=== PATIENT | male | born 1995 | race Caucasian/White ===

== ENCOUNTER 2016-12-20 19:07 | Inpatient (IN) | payer MEDICAID ==
[~2016-12-20] VITALS: Ht 180.3 cm; Wt 64.0 kg
[2016-12-20 21:02] VITALS: BP 123/85
[2016-12-20] MEDS ORDERED: ZOLPIDEM TARTRATE 10 MG TABLET PO PRN (21:15)
[2016-12-20] MEDS ORDERED: HALOPERIDOL 5 MG TABLET PO PRN (21:15)
[2016-12-20] MEDS ORDERED: DiphenhydrAMINE/ZINC ACET 30 GM CREAM TP PRN (22:00)
[2016-12-20 22:01] VITALS: BP 127/85
[2016-12-20] MEDS ORDERED: INFLUENZA VIRUS VACCINE QVS 2016-17 (3YR+)/PF 60 MCG/0.5 ML SYRINGE IM ONE (22:15)
[2016-12-21 10:22] VITALS: BP 112/78
[2016-12-21 17:59] VITALS: BP 117/62
[2016-12-22 08:49] VITALS: BP 135/93
[2016-12-22 16:29] VITALS: BP 120/65
[2016-12-23 08:00] VITALS: BP 125/76
[2016-12-23] MEDS: LORazepam 2 MG TABLET PO PRN ×2 (10:10→16:47)
[2016-12-23] MEDS: RisperiDONE 1 MG TABLET PO SCH (16:47)
[2016-12-23 21:10] VITALS: BP 118/85
[2016-12-24 07:40] LABS: BASOPHILS % (AUTO) 0.4 % (0.0-2.0); HEMATOCRIT 48.8 % (41-53); HEMOGLOBIN 16.3 g/dL (13.5-17.5); LYMPHOCYTES # (AUTO) 2.2 K/uL (1.0-4.8); LYMPHOCYTES % (AUTO) 36.7 % (22.0-44.0); MEAN CORPUSCULAR HEMOGLOBIN 29.3 pg (26.0-34.0); MEAN CORPUSCULAR HGB CONC 33.4 G/dL (31.0-37.0); MEAN CORPUSCULAR VOLUME 88 fL (80-100); MONOCYTES # (AUTO) 0.6 K/uL (0.1-1.0); MONOCYTES % (AUTO) 9.8 % (2.0-9.0); NEUTROPHILS # (AUTO) 2.9 K/uL (1.8-7.7); NEUTROPHILS % (AUTO) 49.1 % (40.0-70.0); PLATELET COUNT (AUTO) 184 K/uL (150-450); RED BLOOD CELL COUNT(AUTO) 5.55 MIL/uL (4.50-5.90)
[2016-12-24 08:21] LABS: ALANINE AMINOTRANSFERASE 20 U/L (12-78); ALBUMIN 4.1 g/dL (3.4-5.0); ANION GAP 7 mmol/L (8-16); ASPARTATE AMINOTRANSFERASE 15 U/L (15-37); BILIRUBIN,TOTAL 0.6 mg/dL (0.1-1.0); CALCIUM, TOTAL 9.1 mg/dL (8.8-10.5); CARBON DIOXIDE 29 mmol/L (22-29); CHLORIDE 103 mmol/L (98-107); CREATININE 1.02 mg/dL (0.60-1.30); GLOMERULAR FILTR. RATE CALC > 60 mL/min (>60); POTASSIUM 4.5 mmol/L (3.5-5.1); SODIUM SERUM 139 mmol/L (136-145); TOTAL PROTEIN, SERUM 7.3 g/dL (6.4-8.2); UREA NITROGEN, BLOOD 17 mg/dL (7-18)
[2016-12-24 08:39] VITALS: BP 132/76
[2016-12-24] MEDS: RisperiDONE 1 MG TABLET PO SCH ×2 (10:55→17:06)
[2016-12-24 16:30] VITALS: BP 132/80
[2016-12-24] MEDS: LORazepam 2 MG TABLET PO PRN (17:05)
[2016-12-25 06:34] VITALS: BP 128/78
[2016-12-25] MEDS: RisperiDONE 1 MG TABLET PO SCH ×2 (09:09→16:21)
[2016-12-25 10:02] VITALS: BP 131/75
[2016-12-25 16:38] VITALS: BP 132/96
[2016-12-25] MEDS: DOCUSATE SODIUM 100 MG CAPSULE PO PRN (19:03)
[2016-12-26 08:00] VITALS: BP 125/70
[2016-12-26] MEDS: RisperiDONE 1 MG TABLET PO SCH ×2 (09:04→16:05)
[2016-12-26] MEDS: DOCUSATE SODIUM 100 MG CAPSULE PO PRN (10:56)
[2016-12-26 16:42] VITALS: BP 132/72
[2016-12-26] MEDS ORDERED: RISP1 PO (18:14)
== END 2016-12-26 19:45 | disposition home or self-care (01) | DRG 750 ==
LOC: 3EI 20:00
PROVIDERS: ADMIT Psychiatry & Neurology Psychiatry; ATTEND Psychiatry & Neurology Psychiatry
DX: F25.9 Schizoaffective disorder, unspecified (principal); R45.851 Suicidal ideations; Z59.0 Homelessness; F31.9 Bipolar disorder, unspecified; Z28.21 Immunization not carried out because of patient refusal; F19.10 Other psychoactive substance abuse, uncomplicated; F99 Mental disorder, not otherwise specified

== ENCOUNTER 2017-02-20 13:11 | Inpatient (IN) | payer MEDICAID ==
[~2017-02-20] VITALS: Ht 177.8 cm; Wt 78.6 kg
[~2017-02-20 13:11] MED LIST: RISP1 PO
[2017-02-20] MEDS ORDERED: DIPH25CA85 PO (14:48)
[2017-02-20] MEDS ORDERED: OLAN5TAB2 PO (14:48)
[2017-02-20] MEDS ORDERED: FLUO40CA7 PO (14:49)
[2017-02-20 16:13] LABS: BASOPHILS % (AUTO) 0.6 % (0.0-2.0); EOSINOPHILS % (AUTO) 3.9 % (1.0-6.0); HEMATOCRIT 44.6 % (41-53); HEMOGLOBIN 14.9 g/dL (13.5-17.5); LYMPHOCYTES % (AUTO) 31.1 % (22.0-44.0); MEAN CORPUSCULAR HEMOGLOBIN 29.3 pg (26.0-34.0); MEAN CORPUSCULAR HGB CONC 33.4 G/dL (31.0-37.0); MEAN CORPUSCULAR VOLUME 88 fL (80-100); MONOCYTES # (AUTO) 0.6 K/uL (0.1-1.0); MONOCYTES % (AUTO) 9.9 % (2.0-9.0); NEUTROPHILS # (AUTO) 3.4 K/uL (1.8-7.7); NEUTROPHILS % (AUTO) 54.5 % (40.0-70.0); PLATELET COUNT (AUTO) 187 K/uL (150-450); RED BLOOD CELL COUNT(AUTO) 5.09 MIL/uL (4.50-5.90); RED CELL DISTRIBUTION WIDTH 13.1 % (11.5-14.5); WHITE BLOOD COUNT (AUTO) 6.3 K/uL (4.5-11.0)
[2017-02-20 16:21] LABS: ANION GAP 7 mmol/L (8-16); CALCIUM, TOTAL 8.8 mg/dL (8.8-10.5); CARBON DIOXIDE 30 mmol/L (22-29); CHLORIDE 106 mmol/L (98-107); GLOMERULAR FILTR. RATE CALC > 60 mL/min (>60); POTASSIUM 4.4 mmol/L (3.5-5.1); SODIUM SERUM 143 mmol/L (136-145); UREA NITROGEN, BLOOD 11 mg/dL (7-18)
[2017-02-20 16:27] LABS: ALBUMIN 3.8 g/dL (3.4-5.0); BILIRUBIN,TOTAL 0.4 mg/dL (0.1-1.0); TOTAL PROTEIN, SERUM 6.9 g/dL (6.4-8.2)
[2017-02-20 17:31] LABS: ALANINE AMINOTRANSFERASE 24 U/L (12-78); ASPARTATE AMINOTRANSFERASE 18 U/L (15-37)
[2017-02-20] MEDS ORDERED: LORazepam 1 MG TABLET PO PRN (17:45)
[2017-02-20] MEDS ORDERED: LORazepam 2 MG TABLET PO PRN (17:45)
[2017-02-20] MEDS ORDERED: HALOPERIDOL 5 MG TABLET PO PRN (17:45)
[2017-02-21 06:05] VITALS: BP 118/62
[2017-02-21 08:46] VITALS: BP 106/60
[2017-02-21] MEDS: NICOTINE 7 MG/24 HOUR PATCH TD SCH (08:47)
[2017-02-21 09:21] LABS: HEMOGLOBIN A1C 5.1 % (4.5-6.2)
[2017-02-21 10:16] LABS: CHOL/HDL RATIO 4.1 (4.2-7.3); THYROID STIMULATING HORMONE 0.85 uIU/mL (0.36-3.74)
[2017-02-21] MEDS: FLUoxetine HCL 20 MG CAPSULE PO SCH (11:53)
[2017-02-21 16:00] VITALS: BP 127/76
[2017-02-21] MEDS: DIVALPROEX SODIUM 500 MG DR TABLET PO SCH (16:21)
[2017-02-21] MEDS ORDERED: IBUPROFEN 400 MG TABLET PO PRN (20:45)
[2017-02-21] MEDS ORDERED: ACETAMINOPHEN 325 MG TABLET PO PRN (20:45)
[2017-02-22 06:00] VITALS: BP 105/66
[2017-02-22 09:16] VITALS: BP 125/65
[2017-02-22] MEDS: DIVALPROEX SODIUM 500 MG DR TABLET PO SCH ×2 (09:29→16:49)
[2017-02-22] MEDS: FLUoxetine HCL 20 MG CAPSULE PO SCH (09:29)
[2017-02-22] MEDS: NICOTINE 7 MG/24 HOUR PATCH TD SCH (09:30)
[2017-02-22 16:00] VITALS: BP 120/72
[2017-02-23 00:18] VITALS: BP 108/67
[2017-02-23 08:27] VITALS: BP 128/70
[2017-02-23] MEDS: FLUoxetine HCL 20 MG CAPSULE PO SCH (09:08)
[2017-02-23] MEDS: DIVALPROEX SODIUM 500 MG DR TABLET PO SCH ×2 (09:08→17:05)
[2017-02-23] MEDS: NICOTINE 7 MG/24 HOUR PATCH TD SCH (09:09)
[2017-02-23 16:15] VITALS: BP 140/72
[2017-02-24 00:56] VITALS: BP 118/65
[2017-02-24] MEDS: DIVALPROEX SODIUM 500 MG DR TABLET PO SCH ×2 (08:09→16:58)
[2017-02-24] MEDS: FLUoxetine HCL 20 MG CAPSULE PO SCH (08:09)
[2017-02-24] MEDS: NICOTINE 7 MG/24 HOUR PATCH TD SCH (08:10)
[2017-02-24 08:46] VITALS: BP 140/79
[2017-02-24 16:09] VITALS: BP 126/73
[2017-02-25 02:14] VITALS: BP 105/65
[2017-02-25 08:25] VITALS: BP 134/84
[2017-02-25] MEDS: FLUoxetine HCL 20 MG CAPSULE PO SCH (09:29)
[2017-02-25] MEDS: DIVALPROEX SODIUM 500 MG DR TABLET PO SCH ×2 (09:29→17:26)
[2017-02-25] MEDS: NICOTINE 7 MG/24 HOUR PATCH TD SCH (09:29)
[2017-02-25 16:00] VITALS: BP 132/76
[2017-02-26 05:13] VITALS: BP 107/62
[2017-02-26 08:19] VITALS: BP 111/61
[2017-02-26] MEDS: DOCUSATE SODIUM 100 MG CAPSULE PO SCH ×2 (09:11→16:28)
[2017-02-26] MEDS: DIVALPROEX SODIUM 500 MG DR TABLET PO SCH ×2 (09:11→16:28)
[2017-02-26] MEDS: FLUoxetine HCL 20 MG CAPSULE PO SCH (09:11)
[2017-02-26] MEDS: NICOTINE 7 MG/24 HOUR PATCH TD SCH (09:12)
[2017-02-26 16:00] VITALS: BP 134/70
[2017-02-27 03:29] VITALS: BP 110/63
[2017-02-27 08:03] VITALS: BP 117/61
[2017-02-27] MEDS: DOCUSATE SODIUM 100 MG CAPSULE PO SCH ×2 (08:33→16:02)
[2017-02-27] MEDS: NICOTINE 7 MG/24 HOUR PATCH TD SCH (08:33)
[2017-02-27] MEDS: FLUoxetine HCL 20 MG CAPSULE PO SCH (08:34)
[2017-02-27] MEDS: DIVALPROEX SODIUM 500 MG DR TABLET PO SCH ×2 (08:34→16:02)
[2017-02-27] MEDS ORDERED: DIVA250T4 PO (16:40)
[2017-02-27] MEDS ORDERED: DOCU250C91 PO (16:40)
== END 2017-02-27 18:00 | disposition home or self-care (01) | DRG 750 ==
LOC: EMS 13:21 → EEVIPCON 13:21 → EMS 19:20 → B2S 20:24
PROVIDERS: ADMIT Psychiatry & Neurology Psychiatry; ATTEND Psychiatry & Neurology Psychiatry
DX: F25.9 Schizoaffective disorder, unspecified (principal); R45.851 Suicidal ideations; F22 Delusional disorders; E78.5 Hyperlipidemia, unspecified; F17.200 Nicotine dependence, unspecified, uncomplicated; F31.9 Bipolar disorder, unspecified; F19.10 Other psychoactive substance abuse, uncomplicated; Z91.14 Patient's other noncompliance with medication regimen; Z71.6 Tobacco abuse counseling; Z59.0 Homelessness; Z79.899 Other long term (current) drug therapy
CPT/HCPCS: 83036; 84439; 84443; 87081; 99285; G0480

== ENCOUNTER 2017-05-20 21:11 | Inpatient (IN) | payer MEDICAID ==
[~2017-05-20] VITALS: Ht 185.4 cm; Wt 79.8 kg
[~2017-05-20 21:11] MED LIST changes: +DIVA250T4 PO; +DOCU250C91 PO; +FLUO40CA7 PO; -RISP1 PO
[2017-05-20] MEDS ORDERED: TRAZ-144 PO ×2 (21:19→21:29)
[2017-05-20] MEDS ORDERED: RISP.5 PO ×2 (21:19→21:29)
[2017-05-20] MEDS ORDERED: RISP2 PO (21:29)
[2017-05-20] MEDS ORDERED: DOCU250C91 PO (21:29)
[2017-05-20 22:03] LABS: BASOPHILS % (AUTO) 0.3 % (0.0-2.0); HEMATOCRIT 39.3 % (41-53); HEMOGLOBIN 13.8 g/dL (13.5-17.5); LYMPHOCYTES # (AUTO) 1.6 K/uL (1.0-4.8); LYMPHOCYTES % (AUTO) 26.3 % (22.0-44.0); MEAN CORPUSCULAR HEMOGLOBIN 30.8 pg (26.0-34.0); MEAN CORPUSCULAR HGB CONC 35.2 G/dL (31.0-37.0); MEAN CORPUSCULAR VOLUME 87 fL (80-100); MONOCYTES # (AUTO) 0.7 K/uL (0.1-1.0); MONOCYTES % (AUTO) 11.3 % (2.0-9.0); NEUTROPHILS # (AUTO) 3.5 K/uL (1.8-7.7); NEUTROPHILS % (AUTO) 58.1 % (40.0-70.0); PLATELET COUNT (AUTO) 175 K/uL (150-450); RED CELL DISTRIBUTION WIDTH 13.2 % (11.5-14.5); WHITE BLOOD COUNT (AUTO) 6.1 K/uL (4.5-11.0)
[2017-05-20 22:14] LABS: ANION GAP 9 mmol/L (8-16); CALCIUM, TOTAL 9.1 mg/dL (8.8-10.5); CARBON DIOXIDE 27 mmol/L (22-29); CHLORIDE 104 mmol/L (98-107); GLOMERULAR FILTR. RATE CALC > 60 mL/min (>60); SODIUM SERUM 140 mmol/L (136-145); UREA NITROGEN, BLOOD 14 mg/dL (7-18)
[2017-05-20 22:22] LABS: ALANINE AMINOTRANSFERASE 29 U/L (12-78); ALBUMIN 3.8 g/dL (3.4-5.0); ASPARTATE AMINOTRANSFERASE 16 U/L (15-37); BILIRUBIN,TOTAL 0.3 mg/dL (0.1-1.0); CHOL/HDL RATIO 3.9 (4.2-7.3); TOTAL PROTEIN, SERUM 6.7 g/dL (6.4-8.2); VALPROIC ACID 50 mcg/mL (50-100)
[2017-05-21] MEDS: LORazepam 2 MG TABLET PO PRN ×2 (08:14→14:23)
[2017-05-21 14:08] VITALS: BP 126/67
[2017-05-21 14:11] VITALS: BP 126/67
[2017-05-21] MEDS: HALOPERIDOL 5 MG TABLET PO PRN (14:23)
[2017-05-21] MEDS: DIVALPROEX SODIUM 250 MG DR TABLET PO SCH (16:04)
[2017-05-21 20:23] VITALS: BP 125/79
[2017-05-21 20:45] VITALS: BP 125/79
[2017-05-21] MEDS: ZOLPIDEM TARTRATE 10 MG TABLET PO PRN (20:46)
[2017-05-22] MEDS ORDERED: BACITRACIN 28.4 GM OINTMENT TP PRN (09:00)
[2017-05-22] MEDS ORDERED: ONDANSETRON HCL 4 MG TABLET PO PRN (09:00)
[2017-05-22] MEDS ORDERED: ALBUTEROL SULFATE HFA 90 MCG/PUFF 8 GM INHALER IH PRN (09:00)
[2017-05-22] MEDS ORDERED: ACETAMINOPHEN 325 MG TABLET PO PRN (09:00)
[2017-05-22] MEDS ORDERED: PETROLATUM,WHITE 71 GM JELLY TP PRN (09:00)
[2017-05-22] MEDS ORDERED: CloNIDine HCL 0.1 MG TABLET PO PRN (09:00)
[2017-05-22] MEDS ORDERED: BENZOCAINE/MENTHOL LOZENGE [8 LOZENGES/PACKET] MM PRN (09:00)
[2017-05-22] MEDS ORDERED: IBUPROFEN 600 MG TABLET PO PRN (09:00)
[2017-05-22] MEDS ORDERED: MAGNESIUM HYDROXIDE SUSPENSION 30 ML UDCUP PO PRN (09:00)
[2017-05-22] MEDS ORDERED: MAG HYDROX/AL HYDROX/SIMETH ES 30 ML SUSPENSION UDCUP PO PRN (09:00)
[2017-05-22] MEDS ORDERED: LOPERAMIDE HCL 2 MG CAPSULE PO PRN (09:00)
[2017-05-22] MEDS: FLUoxetine HCL 20 MG CAPSULE PO SCH (10:04)
[2017-05-22] MEDS: DIVALPROEX SODIUM 250 MG DR TABLET PO SCH ×2 (10:05→17:55)
[2017-05-22 10:32] VITALS: BP 115/78
[2017-05-22] MEDS: LORazepam 2 MG TABLET PO PRN (11:00)
[2017-05-22] MEDS: HALOPERIDOL 5 MG TABLET PO PRN (11:00)
[2017-05-22 20:24] VITALS: BP 122/66
[2017-05-22] MEDS: ZOLPIDEM TARTRATE 10 MG TABLET PO PRN (21:07)
[2017-05-23] MEDS: FLUoxetine HCL 20 MG CAPSULE PO SCH (08:23)
[2017-05-23] MEDS: DIVALPROEX SODIUM 250 MG DR TABLET PO SCH (08:24)
[2017-05-23 09:33] VITALS: BP 136/71
== END 2017-05-23 15:20 | disposition home or self-care (01) | DRG 750 ==
LOC: EMS 21:12 → 3EI 05-21 11:19
DX: F25.1 Schizoaffective disorder, depressive type (principal); R45.851 Suicidal ideations; F12.90 Cannabis use, unspecified, uncomplicated; F15.90 Other stimulant use, unspecified, uncomplicated; Z72.0 Tobacco use; K59.00 Constipation, unspecified; G47.00 Insomnia, unspecified
CPT/HCPCS: 87081; 99285; G0480

== ENCOUNTER 2018-02-03 19:35 | Inpatient (IN) | payer MEDICAID, OTHER ==
[~2018-02-03] VITALS: Ht 175.3 cm; Wt 70.3 kg
[~2018-02-03 19:35] MED LIST changes: -DOCU250C91 PO
[2018-02-03 20:29] LABS: BASOPHILS % (AUTO) 0.6 % (0.0-2.0); EOSINOPHILS % (AUTO) 4.5 % (1.0-6.0); HEMATOCRIT 46.7 % (41-53); HEMOGLOBIN 16.5 g/dL (13.5-17.5); LYMPHOCYTES % (AUTO) 19.1 % (22.0-44.0); MEAN CORPUSCULAR HEMOGLOBIN 30.6 pg (26.0-34.0); MEAN CORPUSCULAR HGB CONC 35.3 G/dL (31.0-37.0); MEAN CORPUSCULAR VOLUME 87 fL (80-100); MONOCYTES # (AUTO) 0.9 K/uL (0.1-1.0); MONOCYTES % (AUTO) 9.1 % (2.0-9.0); NEUTROPHILS # (AUTO) 6.9 K/uL (1.8-7.7); NEUTROPHILS % (AUTO) 66.7 % (40.0-70.0); PLATELET COUNT (AUTO) 240 K/uL (150-450); RED BLOOD CELL COUNT(AUTO) 5.38 MIL/uL (4.50-5.90); RED CELL DISTRIBUTION WIDTH 13.3 % (11.5-14.5)
[2018-02-03 20:35] LABS: ANION GAP 8 mmol/L (8-16); CALCIUM, TOTAL 9.4 mg/dL (8.8-10.5); CARBON DIOXIDE 29 mmol/L (22-29); CHLORIDE 105 mmol/L (98-107); CREATININE 1.15 mg/dL (0.60-1.30); GLOMERULAR FILTR. RATE CALC > 60 mL/min (>60); GLUCOSE,RANDOM 117 mg/dL (70-110); POTASSIUM 3.8 mmol/L (3.5-5.1); SODIUM SERUM 142 mmol/L (136-145); UREA NITROGEN, BLOOD 13 mg/dL (7-18)
[2018-02-03 20:41] LABS: ALANINE AMINOTRANSFERASE 34 U/L (12-78); ALBUMIN 4.4 g/dL (3.4-5.0); ALKALINE PHOSPHATASE 73 U/L (46-116); ASPARTATE AMINOTRANSFERASE 25 U/L (15-37); BILIRUBIN,TOTAL 0.9 mg/dL (0.1-1.0); TOTAL PROTEIN, SERUM 7.3 g/dL (6.4-8.2)
[2018-02-03] MEDS ORDERED: HALOPERIDOL 5 MG TABLET PO ONE (23:15)
[2018-02-04 01:26] LABS: AMPHET/METH SCREEN,URINE POSITIVE (NEGATIVE); BARBITURATE SCREEN, URINE NEGATIVE (NEGATIVE); BENZODIAZEPINES SCREEN,URINE NEGATIVE (NEGATIVE); CANNABINOID SCREEN,URINE POSITIVE (NEGATIVE); COCAINE SCREEN,URINE NEGATIVE (NEGATIVE); METHADONE SCREEN, URINE NEGATIVE (NEGATIVE); OPIATE SCREEN,URINE NEGATIVE (NEGATIVE)
[2018-02-04 01:27] LABS: PHENCYCLIDINE SCREEN,URINE NEGATIVE (NEGATIVE)
[2018-02-04 03:10] LABS: APPEARANCE,URINE TURBID (CLEAR); GLUCOSE, URINE (UA) NEGATIVE (NEGATIVE); KETONES,URINE NEGATIVE (NEGATIVE); LEUKOCYTE ESTERASE ,URINE NEGATIVE (NEGATIVE); NITRATE,URINE NEGATIVE (NEGATIVE); OCCULT BLOOD,URINE NEGATIVE (NEGATIVE); PROTEIN,URINE TRACE (NEGATIVE)
[2018-02-04 03:13] LABS: BILIRUBIN,URINE PRELIM. POSITIVE (NEGATIVE)
[2018-02-04 04:46] LABS: CHOL/HDL RATIO 2.8 (4.2-7.3); CHOLESTEROL 149 mg/dL (131-200); HDL CHOLESTEROL 53 mg/dL (40-60); LDL CHOL (CALC.) 69 mg/dL (0-130); TRIGLYCERIDES 133 mg/dL (15-150)
[2018-02-04] MEDS: HALOPERIDOL 5 MG TABLET PO PRN ×2 (10:12→23:46)
[2018-02-04 10:39] VITALS: BP 113/54
[2018-02-04] MEDS ORDERED: PNEUMOCOCCAL VACCINE POLYVALENT 0.5 ML VIAL [PPSV23] IM ONE (15:15)
[2018-02-04] MEDS: LORazepam 2 MG TABLET PO PRN (23:46)
[2018-02-05 10:49] VITALS: BP 124/81
[2018-02-05] MEDS: NICOTINE 14 MG/24 HOUR PATCH TD SCH ×2 (16:09→16:13)
[2018-02-05 16:17] VITALS: BP 113/69
[2018-02-05] MEDS: LORazepam 2 MG TABLET PO PRN (16:23)
[2018-02-05] MEDS: DIVALPROEX SODIUM 500 MG DR TABLET PO SCH (20:30)
[2018-02-06] MEDS: LORazepam 2 MG TABLET PO PRN ×3 (04:30→18:23)
[2018-02-06 05:13] VITALS: BP 120/86
[2018-02-06 08:57] VITALS: BP 106/76
[2018-02-06] MEDS: DIVALPROEX SODIUM 500 MG DR TABLET PO SCH ×2 (09:27→20:37)
[2018-02-06] MEDS: FLUoxetine HCL 20 MG CAPSULE PO SCH (09:27)
[2018-02-06] MEDS: NICOTINE 14 MG/24 HOUR PATCH TD SCH (09:27)
[2018-02-06 12:36] VITALS: BP 111/69
[2018-02-06 16:10] VITALS: BP 112/79
[2018-02-06] MEDS: ZOLPIDEM TARTRATE 10 MG TABLET PO PRN (20:37)
[2018-02-07 03:13] VITALS: BP 115/66
[2018-02-07] MEDS: HALOPERIDOL 5 MG TABLET PO PRN ×2 (03:15→09:26)
[2018-02-07] MEDS: LORazepam 2 MG TABLET PO PRN ×3 (03:58→16:48)
[2018-02-07 08:31] VITALS: BP 105/61
[2018-02-07] MEDS: FLUoxetine HCL 20 MG CAPSULE PO SCH (09:26)
[2018-02-07] MEDS: DIVALPROEX SODIUM 500 MG DR TABLET PO SCH ×2 (09:26→20:27)
[2018-02-07] MEDS: NICOTINE 14 MG/24 HOUR PATCH TD SCH (09:26)
[2018-02-07 16:22] VITALS: BP 114/72
[2018-02-07] MEDS: ZOLPIDEM TARTRATE 10 MG TABLET PO PRN (20:27)
[2018-02-08 06:44] VITALS: BP 121/68
[2018-02-08 08:40] VITALS: BP 114/62
[2018-02-08] MEDS: DIVALPROEX SODIUM 500 MG DR TABLET PO SCH ×2 (10:26→20:14)
[2018-02-08] MEDS: FLUoxetine HCL 20 MG CAPSULE PO SCH (10:26)
[2018-02-08] MEDS: NICOTINE 14 MG/24 HOUR PATCH TD SCH (10:26)
[2018-02-08] MEDS: LORazepam 2 MG TABLET PO PRN (11:03)
[2018-02-08 16:24] VITALS: BP 114/75
[2018-02-08] MEDS: ZOLPIDEM TARTRATE 10 MG TABLET PO PRN (20:14)
[2018-02-09 06:00] VITALS: BP 103/60
[2018-02-09] MEDS: DIVALPROEX SODIUM 500 MG DR TABLET PO SCH ×2 (09:02→20:13)
[2018-02-09] MEDS: FLUoxetine HCL 20 MG CAPSULE PO SCH (09:02)
[2018-02-09] MEDS: NICOTINE 14 MG/24 HOUR PATCH TD SCH (09:02)
[2018-02-09 09:42] VITALS: BP 108/71
[2018-02-09] MEDS: LORazepam 2 MG TABLET PO PRN (16:30)
[2018-02-09 16:58] VITALS: BP 115/59
[2018-02-09] MEDS: ZOLPIDEM TARTRATE 10 MG TABLET PO PRN (20:40)
[2018-02-10 06:39] VITALS: BP 108/62
[2018-02-10] MEDS: HALOPERIDOL 5 MG TABLET PO PRN (07:54)
[2018-02-10 08:35] VITALS: BP 122/77
[2018-02-10] MEDS: NICOTINE 14 MG/24 HOUR PATCH TD SCH (08:52)
[2018-02-10] MEDS: DIVALPROEX SODIUM 500 MG DR TABLET PO SCH ×2 (08:53→20:07)
[2018-02-10] MEDS: FLUoxetine HCL 20 MG CAPSULE PO SCH (08:53)
[2018-02-10 16:48] VITALS: BP 121/73
[2018-02-10] MEDS: LORazepam 2 MG TABLET PO PRN (20:07)
[2018-02-10] MEDS: ZOLPIDEM TARTRATE 10 MG TABLET PO PRN (20:32)
[2018-02-11 01:30] VITALS: BP 100/63
[2018-02-11] MEDS: FLUoxetine HCL 20 MG CAPSULE PO SCH (08:39)
[2018-02-11] MEDS: NICOTINE 14 MG/24 HOUR PATCH TD SCH (08:40)
[2018-02-11] MEDS: DIVALPROEX SODIUM 500 MG DR TABLET PO SCH ×2 (08:40→20:06)
[2018-02-11 08:52] VITALS: BP 108/76
[2018-02-11] MEDS: LORazepam 2 MG TABLET PO PRN (12:10)
[2018-02-11 16:34] VITALS: BP 120/69
[2018-02-11] MEDS: ZOLPIDEM TARTRATE 10 MG TABLET PO PRN (20:35)
[2018-02-12 02:05] VITALS: BP 100/63
[2018-02-12 08:05] VITALS: BP 113/64
[2018-02-12] MEDS: NICOTINE 14 MG/24 HOUR PATCH TD SCH (08:21)
[2018-02-12] MEDS: DIVALPROEX SODIUM 500 MG DR TABLET PO SCH ×2 (08:21→20:05)
[2018-02-12] MEDS: FLUoxetine HCL 20 MG CAPSULE PO SCH (08:21)
[2018-02-12 16:05] VITALS: BP 122/67
[2018-02-12] MEDS ORDERED: DIVA500T35 PO (18:40)
[2018-02-12] MEDS ORDERED: FLUO-191 PO ×2 (18:40→19:17)
[2018-02-12] MEDS: LORazepam 2 MG TABLET PO PRN (19:14)
[2018-02-12] MEDS ORDERED: DIVA250T4 PO (19:16)
[2018-02-12] MEDS: ZOLPIDEM TARTRATE 10 MG TABLET PO PRN (20:45)
[2018-02-13 02:09] VITALS: BP 102/61
[2018-02-13] MEDS ORDERED: FLUO-191 PO (07:55)
[2018-02-13] MEDS ORDERED: DIVA500T35 PO (07:55)
[2018-02-13 08:20] VITALS: BP 125/67
[2018-02-13] MEDS: FLUoxetine HCL 20 MG CAPSULE PO SCH (08:22)
[2018-02-13] MEDS: DIVALPROEX SODIUM 500 MG DR TABLET PO SCH (08:22)
[2018-02-13] MEDS: NICOTINE 14 MG/24 HOUR PATCH TD SCH (08:26)
== END 2018-02-13 08:35 | disposition home or self-care (01) | DRG 750 ==
LOC: EMS 19:38 → AHU 02-04 09:00 → EMS 02-04 09:49 → B2S 02-05 10:18
PROC: 3E0234Z Introduction of Serum, Toxoid and Vaccine into Muscle, Percutaneous Approach (ICD-10-PCS; principal; 2018-02-06)
DX: F25.1 Schizoaffective disorder, depressive type (principal); R45.851 Suicidal ideations; Z59.0 Homelessness; F15.10 Other stimulant abuse, uncomplicated; E78.1 Pure hyperglyceridemia; F12.10 Cannabis abuse, uncomplicated; K59.00 Constipation, unspecified; G47.9 Sleep disorder, unspecified; Z79.899 Other long term (current) drug therapy; Z87.891 Personal history of nicotine dependence; Z23 Encounter for immunization; Z82.49 Family history of ischemic heart disease and other diseases of the circulatory system
CPT/HCPCS: 90471; 99285; G0480

== ENCOUNTER 2019-04-23 13:06 | Inpatient (IN) | payer MEDICAID, OTHER ==
[~2019-04-23] VITALS: Ht 185.4 cm; Wt 83.6 kg
[~2019-04-23 13:06] MED LIST changes: +DIVA-78 PO; -DIVA250T4 PO; +FLUO-191 PO; -FLUO40CA7 PO
[2019-04-23] MEDS ORDERED: TRAZ150 PO (13:34)
[2019-04-23 13:55] LABS: BASOPHILS % (AUTO) 0.5 % (0.0-2.0); HEMATOCRIT 45.2 % (41-53); HEMOGLOBIN 15.2 g/dL (13.5-17.5); LYMPHOCYTES # (AUTO) 1.8 K/uL (1.0-4.8); LYMPHOCYTES % (AUTO) 22.4 % (22.0-44.0); MEAN CORPUSCULAR HEMOGLOBIN 29.7 pg (26.0-34.0); MEAN CORPUSCULAR HGB CONC 33.6 G/dL (31.0-37.0); MEAN CORPUSCULAR VOLUME 89 fL (80-100); MONOCYTES # (AUTO) 0.5 K/uL (0.1-1.0); MONOCYTES % (AUTO) 6.8 % (2.0-9.0); NEUTROPHILS # (AUTO) 5.3 K/uL (1.8-7.7); NEUTROPHILS % (AUTO) 67.3 % (40.0-70.0); PLATELET COUNT (AUTO) 193 K/uL (150-450); RED BLOOD CELL COUNT(AUTO) 5.11 MIL/uL (4.50-5.90); RED CELL DISTRIBUTION WIDTH 13.1 % (11.5-14.5)
[2019-04-23 14:06] LABS: ANION GAP 9 mmol/L (8-16); CALCIUM, TOTAL 9.4 mg/dL (8.8-10.5); CARBON DIOXIDE 26 mmol/L (22-29); CHLORIDE 103 mmol/L (98-107); CREATININE 0.97 mg/dL (0.60-1.30); GLOMERULAR FILTR. RATE CALC > 60 mL/min (>60); GLUCOSE,RANDOM 74 mg/dL (70-110); POTASSIUM 3.6 mmol/L (3.5-5.1); SODIUM SERUM 138 mmol/L (136-145); UREA NITROGEN, BLOOD 13 mg/dL (7-18)
[2019-04-23 14:11] LABS: ALANINE AMINOTRANSFERASE 26 U/L (12-78); ALKALINE PHOSPHATASE 63 U/L (46-116); ASPARTATE AMINOTRANSFERASE 19 U/L (15-37); BILIRUBIN,TOTAL 0.8 mg/dL (0.1-1.0); TOTAL PROTEIN, SERUM 6.9 g/dL (6.4-8.2)
[2019-04-23 14:14] LABS: VALPROIC ACID < 3 mcg/mL (50-100)
[2019-04-23 15:16] LABS: AMPHET/METH SCREEN,URINE NEGATIVE (NEGATIVE); BARBITURATE SCREEN, URINE NEGATIVE (NEGATIVE); BENZODIAZEPINES SCREEN,URINE NEGATIVE (NEGATIVE); CANNABINOID SCREEN,URINE NEGATIVE (NEGATIVE); COCAINE SCREEN,URINE NEGATIVE (NEGATIVE); METHADONE SCREEN, URINE NEGATIVE (NEGATIVE); OPIATE SCREEN,URINE NEGATIVE (NEGATIVE); PHENCYCLIDINE SCREEN,URINE NEGATIVE (NEGATIVE)
[2019-04-23] MEDS ORDERED: LORazepam 2 MG TABLET PO ONE (15:45)
[2019-04-23] MEDS ORDERED: HALOPERIDOL 5 MG TABLET PO ONE (15:45)
[2019-04-23] MEDS ORDERED: DiphenhydrAMINE HCL 50 MG CAPSULE PO ONE (15:45)
[2019-04-23] MEDS ORDERED: HALOPERIDOL 5 MG TABLET PO PRN (16:45)
[2019-04-23] MEDS ORDERED: ZOLPIDEM TARTRATE 10 MG TABLET PO PRN (16:45)
[2019-04-23 19:35] VITALS: BP 124/75
[2019-04-23] MEDS ORDERED: MAGNESIUM HYDROXIDE SUSPENSION 30 ML UDCUP PO PRN (20:45)
[2019-04-23] MEDS ORDERED: NICOTINE 14 MG/24 HOUR PATCH TD PRN (20:45)
[2019-04-23] MEDS ORDERED: GuaiFENesin/D-METHORPHAN [SUGAR-FREE] 200-20MG/10 ML SYRUP UDCUP PO PRN (20:45)
[2019-04-23] MEDS ORDERED: LOPERAMIDE HCL 2 MG CAPSULE PO PRN (20:45)
[2019-04-23] MEDS ORDERED: ACETAMINOPHEN 325 MG TABLET PO PRN (20:45)
[2019-04-23] MEDS ORDERED: CloNIDine HCL 0.1 MG TABLET PO PRN (20:45)
[2019-04-23] MEDS ORDERED: ONDANSETRON HCL 4 MG TABLET PO PRN (20:45)
[2019-04-23] MEDS ORDERED: DOCUSATE SODIUM 100 MG CAPSULE PO PRN (20:45)
[2019-04-23] MEDS ORDERED: ALBUTEROL SULFATE HFA 90 MCG/PUFF 8 GM INHALER IH PRN (20:45)
[2019-04-23] MEDS ORDERED: MAG HYDROX/AL HYDROX/SIMETH ES 30 ML SUSPENSION UDCUP PO PRN (20:45)
[2019-04-23] MEDS ORDERED: PETROLATUM,WHITE 28 GM JELLY TP PRN (20:45)
[2019-04-24 06:39] LABS: BASOPHILS % (AUTO) 0.5 % (0.0-2.0); EOSINOPHILS % (AUTO) 3.7 % (1.0-6.0); HEMATOCRIT 46.4 % (41-53); HEMOGLOBIN 15.6 g/dL (13.5-17.5); LYMPHOCYTES # (AUTO) 0.8 K/uL (1.0-4.8); LYMPHOCYTES % (AUTO) 11.7 % (22.0-44.0); MEAN CORPUSCULAR HEMOGLOBIN 29.8 pg (26.0-34.0); MEAN CORPUSCULAR HGB CONC 33.7 G/dL (31.0-37.0); MEAN CORPUSCULAR VOLUME 88 fL (80-100); MONOCYTES # (AUTO) 0.5 K/uL (0.1-1.0); MONOCYTES % (AUTO) 7.5 % (2.0-9.0); NEUTROPHILS # (AUTO) 5.4 K/uL (1.8-7.7); NEUTROPHILS % (AUTO) 76.6 % (40.0-70.0); PLATELET COUNT (AUTO) 163 K/uL (150-450); RED BLOOD CELL COUNT(AUTO) 5.25 MIL/uL (4.50-5.90); RED CELL DISTRIBUTION WIDTH 13.2 % (11.5-14.5)
[2019-04-24 07:06] LABS: ALANINE AMINOTRANSFERASE 22 U/L (12-78); ALBUMIN 3.7 g/dL (3.4-5.0); ALKALINE PHOSPHATASE 67 U/L (46-116); ANION GAP 6 mmol/L (8-16); ASPARTATE AMINOTRANSFERASE 15 U/L (15-37); CALCIUM, TOTAL 9.5 mg/dL (8.8-10.5); CARBON DIOXIDE 28 mmol/L (22-29); CHLORIDE 105 mmol/L (98-107); CHOL/HDL RATIO 3.2 (4.2-7.3); CHOLESTEROL 135 mg/dL (131-200); CREATININE 1.08 mg/dL (0.60-1.30); FREE T4 (FREE THYROXINE) 1.03 ng/dL (0.76-1.46); GLOMERULAR FILTR. RATE CALC > 60 mL/min (>60); GLUCOSE,RANDOM 88 mg/dL (70-110); HDL CHOLESTEROL 42 mg/dL (40-60); LDL CHOL (CALC.) 81 mg/dL (0-130); POTASSIUM 4.3 mmol/L (3.5-5.1); SODIUM SERUM 139 mmol/L (136-145); THYROID STIMULATING HORMONE 0.82 uIU/mL (0.36-3.74); TOTAL PROTEIN, SERUM 6.5 g/dL (6.4-8.2); TRIGLYCERIDES 60 mg/dL (15-150); UREA NITROGEN, BLOOD 14 mg/dL (7-18)
[2019-04-24 07:57] LABS: HEMOGLOBIN A1C 4.8 % (4.5-6.2)
[2019-04-24 08:00] VITALS: BP 122/65
[2019-04-24 12:34] VITALS: BP 122/65
[2019-04-24] MEDS: IBUPROFEN 400 MG TABLET PO PRN (12:38)
[2019-04-24] MEDS: FLUoxetine HCL 20 MG CAPSULE PO SCH (13:57)
[2019-04-24 16:30] VITALS: BP 90/54
[2019-04-24] MEDS: OLANZapine 5 MG TABLET PO SCH (20:39)
[2019-04-25 08:46] VITALS: BP 159/84
[2019-04-25] MEDS: FLUoxetine HCL 20 MG CAPSULE PO SCH (10:30)
[2019-04-25] MEDS: IBUPROFEN 400 MG TABLET PO PRN (12:04)
[2019-04-25 16:20] VITALS: BP 115/58
[2019-04-25] MEDS: OLANZapine 5 MG TABLET PO SCH (20:24)
[2019-04-26 08:00] VITALS: BP 158/85
[2019-04-26] MEDS: FLUoxetine HCL 20 MG CAPSULE PO SCH (08:45)
[2019-04-26 16:12] VITALS: BP 141/75
[2019-04-26] MEDS: LORazepam 2 MG TABLET PO PRN (19:08)
[2019-04-26] MEDS: OLANZapine 5 MG TABLET PO SCH (20:04)
[2019-04-27 08:06] VITALS: BP 130/72
[2019-04-27] MEDS: FLUoxetine HCL 20 MG CAPSULE PO SCH (09:18)
[2019-04-27 16:30] VITALS: BP 134/76
[2019-04-27] MEDS: LORazepam 2 MG TABLET PO PRN (19:11)
[2019-04-27] MEDS: OLANZapine 5 MG TABLET PO SCH (20:15)
[2019-04-28] MEDS: FLUoxetine HCL 20 MG CAPSULE PO SCH (08:16)
[2019-04-28 10:04] VITALS: BP 138/92
[2019-04-28] MEDS ORDERED: OLAN5TAB27 PO (12:22)
[2019-04-28] MEDS ORDERED: FLUO-191 PO (12:22)
== END 2019-04-28 15:00 | disposition home or self-care (01) | DRG 753 ==
LOC: EMS 13:07 → 3EI 18:31
DX: F31.5 Bipolar disorder, current episode depressed, severe, with psychotic features (principal); R45.851 Suicidal ideations; Z91.14 Patient's other noncompliance with medication regimen; F12.90 Cannabis use, unspecified, uncomplicated; F15.10 Other stimulant abuse, uncomplicated; I10 Essential (primary) hypertension; K59.00 Constipation, unspecified; Z59.0 Homelessness; Z79.899 Other long term (current) drug therapy; Z87.891 Personal history of nicotine dependence; Z91.5 Personal history of self-harm
CPT/HCPCS: 83036; 84439; 84443; G0480

== ENCOUNTER 2019-06-08 10:08 | Inpatient (IN) | payer MEDICAID ==
[~2019-06-08] VITALS: Ht 180.3 cm; Wt 94.8 kg
[~2019-06-08 10:08] MED LIST changes: -DIVA-78 PO; +OLAN5TAB27 PO
[2019-06-08] MEDS ORDERED: OLAN5TAB2 PO (11:08)
[2019-06-08] MEDS ORDERED: FLUO-191 PO (11:08)
[2019-06-08 11:22] VITALS: BP 130/66
[2019-06-08] MEDS ORDERED: HALOPERIDOL 5 MG TABLET PO PRN (11:30)
[2019-06-08] MEDS ORDERED: ZOLPIDEM TARTRATE 10 MG TABLET PO PRN (11:30)
[2019-06-08] MEDS ORDERED: LORazepam 2 MG TABLET PO PRN (11:30)
[2019-06-08] MEDS ORDERED: ACETAMINOPHEN 325 MG TABLET PO PRN ×2 (12:15→14:45)
[2019-06-08] MEDS ORDERED: MAG HYDROX/AL HYDROX/SIMETH ES 30 ML SUSPENSION UDCUP PO PRN ×2 (12:15→14:45)
[2019-06-08] MEDS ORDERED: ALBUTEROL SULFATE HFA 90 MCG/PUFF 8 GM INHALER IH PRN ×2 (12:15→14:45)
[2019-06-08] MEDS ORDERED: IBUPROFEN 400 MG TABLET PO PRN ×2 (12:15→14:45)
[2019-06-08] MEDS ORDERED: ONDANSETRON HCL 4 MG TABLET PO PRN ×2 (12:15→14:45)
[2019-06-08] MEDS ORDERED: PETROLATUM,WHITE 28 GM JELLY TP PRN ×2 (12:15→14:45)
[2019-06-08] MEDS ORDERED: DOCUSATE SODIUM 100 MG CAPSULE PO PRN ×2 (12:15→14:45)
[2019-06-08] MEDS ORDERED: MAGNESIUM HYDROXIDE SUSPENSION 30 ML UDCUP PO PRN ×2 (12:15→14:45)
[2019-06-08] MEDS ORDERED: CloNIDine HCL 0.1 MG TABLET PO PRN ×2 (12:15→14:45)
[2019-06-08] MEDS ORDERED: NICOTINE 14 MG/24 HOUR PATCH TD PRN ×2 (12:15→14:45)
[2019-06-08] MEDS ORDERED: LOPERAMIDE HCL 2 MG CAPSULE PO PRN ×2 (12:15→14:45)
[2019-06-08] MEDS ORDERED: GuaiFENesin/D-METHORPHAN [SUGAR-FREE] 200-20MG/10 ML SYRUP UDCUP PO PRN ×2 (12:15→14:45)
[2019-06-08 12:31] VITALS: BP 133/77
[2019-06-08 16:50] VITALS: BP 112/65
[2019-06-08] MEDS: OLANZapine 5 MG TABLET PO SCH (20:20)
[2019-06-09 06:25] VITALS: BP 118/78
[2019-06-09 08:17] LABS: BASOPHILS % (AUTO) 0.3 % (0.0-2.0); EOSINOPHILS % (AUTO) 4.2 % (1.0-6.0); HEMOGLOBIN 16.3 g/dL (13.5-17.5); LYMPHOCYTES # (AUTO) 1.8 K/uL (1.0-4.8); LYMPHOCYTES % (AUTO) 23.4 % (22.0-44.0); MEAN CORPUSCULAR HEMOGLOBIN 30.3 pg (26.0-34.0); MEAN CORPUSCULAR HGB CONC 33.8 G/dL (31.0-37.0); MEAN CORPUSCULAR VOLUME 90 fL (80-100); MONOCYTES # (AUTO) 0.7 K/uL (0.1-1.0); MONOCYTES % (AUTO) 9.7 % (2.0-9.0); NEUTROPHILS # (AUTO) 4.7 K/uL (1.8-7.7); NEUTROPHILS % (AUTO) 62.4 % (40.0-70.0); PLATELET COUNT (AUTO) 243 K/uL (150-450); RED BLOOD CELL COUNT(AUTO) 5.35 MIL/uL (4.50-5.90); RED CELL DISTRIBUTION WIDTH 13.3 % (11.5-14.5)
[2019-06-09 08:24] LABS: HEMOGLOBIN A1C 5.3 % (4.5-6.2)
[2019-06-09 08:47] LABS: ALANINE AMINOTRANSFERASE 76 U/L (12-78); ALBUMIN 4.2 g/dL (3.4-5.0); ALKALINE PHOSPHATASE 82 U/L (46-116); ANION GAP 6 mmol/L (8-16); ASPARTATE AMINOTRANSFERASE 27 U/L (15-37); BILIRUBIN,TOTAL 0.4 mg/dL (0.1-1.0); CALCIUM, TOTAL 9.7 mg/dL (8.8-10.5); CARBON DIOXIDE 29 mmol/L (22-29); CHLORIDE 104 mmol/L (98-107); CHOL/HDL RATIO 5.1 (4.2-7.3); CHOLESTEROL 194 mg/dL (131-200); CREATININE 1.03 mg/dL (0.60-1.30); GLOMERULAR FILTR. RATE CALC > 60 mL/min (>60); GLUCOSE,RANDOM 86 mg/dL (70-110); HDL CHOLESTEROL 38 mg/dL (40-60); LDL CHOL (CALC.) 119 mg/dL (0-130); POTASSIUM 4.7 mmol/L (3.5-5.1); SODIUM SERUM 139 mmol/L (136-145); THYROID STIMULATING HORMONE 2.31 uIU/mL (0.36-3.74); TOTAL PROTEIN, SERUM 7.2 g/dL (6.4-8.2); TRIGLYCERIDES 187 mg/dL (15-150); UREA NITROGEN, BLOOD 13 mg/dL (7-18)
[2019-06-09] MEDS: FLUoxetine HCL 20 MG CAPSULE PO SCH (09:24)
[2019-06-09 10:36] VITALS: BP 118/64
[2019-06-09 16:00] VITALS: BP 124/74
[2019-06-09] MEDS: OLANZapine 5 MG TABLET PO SCH (20:29)
[2019-06-10 05:15] VITALS: BP 116/72
[2019-06-10 08:18] VITALS: BP 142/79
[2019-06-10] MEDS: FLUoxetine HCL 20 MG CAPSULE PO SCH (09:05)
[2019-06-10 16:00] VITALS: BP 119/61
[2019-06-10] MEDS: OLANZapine 10 MG TABLET PO SCH (20:39)
[2019-06-11 06:09] VITALS: BP 105/60
[2019-06-11 08:26] VITALS: BP 132/60
[2019-06-11] MEDS: FLUoxetine HCL 20 MG CAPSULE PO SCH (09:19)
[2019-06-11 16:00] VITALS: BP 117/65
[2019-06-11] MEDS: OLANZapine 10 MG TABLET PO SCH (20:46)
[2019-06-12 05:21] VITALS: BP 119/75
[2019-06-12] MEDS: FLUoxetine HCL 20 MG CAPSULE PO SCH (08:34)
[2019-06-12 10:53] VITALS: BP 123/66
[2019-06-12 16:00] VITALS: BP 130/69
[2019-06-12] MEDS: OLANZapine 10 MG TABLET PO SCH (20:09)
[2019-06-13 05:51] VITALS: BP 126/71
[2019-06-13 08:06] VITALS: BP 130/69
[2019-06-13] MEDS: FLUoxetine HCL 20 MG CAPSULE PO SCH (08:41)
[2019-06-13 16:00] VITALS: BP 128/66
[2019-06-13] MEDS: OLANZapine 10 MG TABLET PO SCH (20:16)
[2019-06-14 05:59] VITALS: BP 117/75
[2019-06-14 08:58] VITALS: BP 104/74
[2019-06-14] MEDS: FLUoxetine HCL 20 MG CAPSULE PO SCH (08:59)
[2019-06-14] MEDS ORDERED: OLAN10TA3 PO (12:11)
== END 2019-06-14 15:45 | disposition home or self-care (01) | DRG 753 ==
LOC: B3A 11:21
PROVIDERS: ADMIT Psychiatry & Neurology Psychiatry; ATTEND Psychiatry & Neurology Psychiatry
DX: F31.9 Bipolar disorder, unspecified (principal); R45.851 Suicidal ideations; F20.9 Schizophrenia, unspecified; F10.10 Alcohol abuse, uncomplicated; Z71.41 Alcohol abuse counseling and surveillance of alcoholic; G44.209 Tension-type headache, unspecified, not intractable; Z59.0 Homelessness; Z79.899 Other long term (current) drug therapy; Z82.49 Family history of ischemic heart disease and other diseases of the circulatory system
CPT/HCPCS: 83036; 84443